=== PATIENT | male | born 1955 | race Caucasian/White ===

== ENCOUNTER 2019-09-10 14:11 | Inpatient (IN) | payer OTHER, SELFPAY ==
[~2019-09-10] VITALS: Ht 157.5 cm; Wt 51.3 kg
[2019-09-10 14:15] VITALS: BP 149/92
--- NOTE | 2019-09-10 14:47 | NUR ---
PT WHEELCHAIRED TO ER BED 06
--- NOTE | 2019-09-10 14:49 | NUR ---
64 Y/O MALE PRESENTS WITH TEAR IN G TUBE THAT CAREGIVER NOTICED TODAY. LEAKING NOTED AT TEAR SITE, WHICH IS AT THE BASE OF G TUBE. CAREGIVER UNABLE TO RECALL WHEN G TUBE WAS REPLACED LAST. ABD SOFT/NON DISTENDED. BOWEL SOUNDS NORMOACTIVE IN ALL QUADRANTS. SKIN COOL/DRY. PT IS NON VERBAL/NON AMBULATORY. RESP EVEN AND UNLABORED. LUNG SOUNDS CLEAR IN BILAT GALVAN ALLERGIES: INSULIN, ZOVIREX
[2019-09-10 15:52] LABS: BASOPHILS % (AUTO) 0.6 % (0.0-2.0); EOSINOPHILS # (AUTO) 0.1 K/uL (0-0.4); EOSINOPHILS % (AUTO) 0.8 % (0.0-4.0); HEMATOCRIT 45.2 % (36-52); HEMOGLOBIN 15.2 g/dL (12.0-18.0); LYMPHOCYTES % (AUTO) 26.6 % (20.5-51.1); MEAN CORPUSCULAR HEMOGLOBIN 33 pg (27-31); MEAN CORPUSCULAR HGB CONC 34 g/dL (33-37); MEAN CORPUSCULAR VOLUME 97.8 fL (80-94); MONOCYTES # (AUTO) 0.6 K/uL (0.8-1.0); MONOCYTES % (AUTO) 8.2 % (1.7-9.3); NEUTROPHILS # (AUTO) 4.9 K/uL (1.8-7.7); NEUTROPHILS % (AUTO) 63.8 % (42.2-75.2); PLATELET COUNT (AUTO) 219 K/uL (140-450); RED BLOOD CELL COUNT(AUTO) 4.62 MIL/uL (4.20-6.10); RED CELL DISTRIBUTION WIDTH 13.1 % (11.6-13.7); WHITE BLOOD COUNT (AUTO) 7.6 K/uL (4.8-10.8)
[2019-09-10 17:13] LABS: ALBUMIN 3.7 g/dL (3.4-5.0); CREATININE 0.7 mg/dL (0.6-1.3); TOTAL BILIRUBIN 0.9 mg/dL (0.0-1.0)
[2019-09-10 17:29] LABS: POTASSIUM 3.6 mmol/L (3.5-5.1)
[2019-09-10] MEDS ORDERED: NACL 0.9% 1,000 ML IV SCH (17:44)
[2019-09-10] MEDS ORDERED: HYDROcodone/APAP 5/325 MG 1 TAB TAB PO PRN (17:45)
[2019-09-10] MEDS ORDERED: DOCUSATE SODIUM 100 MG GELCAP PO PRN (17:45)
[2019-09-10] MEDS ORDERED: ONDANSETRON 4 MG/2 ML VIAL IM/IVP PRN (17:45)
[2019-09-10] MEDS ORDERED: MORPHINE SULFATE 2 MG/ML SYR IVP PRN (17:45)
[2019-09-10] MEDS ORDERED: ACETAMINOPHEN 325 MG TAB PO PRN (17:45)
--- NOTE | 2019-09-10 17:55 | NUR ---
Note sofiekelsy in EDM - 09/10/19 at 1838 by MEDTOMAS Patient discharged with v/s stable. Written and verbal after care instructions given and explained. Patient alert, oriented and verbalized understanding of instructions. Ambulatory with steady gait. All questions addressed prior to discharge. ID band removed. Patient advised to follow up with PMD. Rx of PRILOSEC ,CIPRO given. Patient educated on indication of medication including possible reaction and side effects. Opportunity to ask questions provided and answered.
[2019-09-10] MEDS ORDERED: DEXT 5% /NACL 0.9% 1,000 ML IV ONE (18:05)
[2019-09-10 18:06] LABS: ANION GAP 16.6 (8-16)
[2019-09-10 18:18] LABS: MAGNESIUM 1.9 mg/dL (1.8-2.4); PHOSPHORUS 3.6 mg/dL (2.5-4.9); THYROID STIMULATING HORMONE 3.06 uIU/mL (0.34-3.74)
[2019-09-10 18:32] VITALS: BP 112/85
--- NOTE | 2019-09-10 18:32 | NUR ---
RECEIVED REPORT FROM ER NURSE FOR CONTINUITY OF CARE, PT IS STABLE, PT AOX1, PT APHASIC, PT HAS HX OF CEREBRAL PALSY, PT DX WITH J-TUBE MALFUNCTION WITH VISIBLE TEAR, SKIN INTACT, PT HAS RIGHT FA 22G SALINE LOCK, INTRODUCE SELF, UPDATED WHITEBOARD, BED ALARM ON, SAFETY MEASURES IN PLACE, CALL LIGHT WITHIN REACH, ALL NEEDS MET AT THIS TIME, WILL CONTINUE TO MONITOR.
--- NOTE | 2019-09-10 18:41 | NUR ---
Patient will be admitted to care of [facility]. Admited to TELE. Will go to room 110A. Belongings list completed. Report to DAKOTA WOLFE.
[2019-09-10 18:47] LABS: PROTHROMBIN TIME 10.4 secs (10.8-13.4)
--- NOTE | 2019-09-10 19:02 | NUR ---
GAVE REPORT TO NIGHT NURSE FOR CONTINUITY OF CARE, PT IS STABLE
[2019-09-10] MEDS ORDERED: LACT10SO1 GT (19:03)
[2019-09-10] MEDS ORDERED: ROB1 GT (19:03)
[2019-09-10] MEDS ORDERED: CALC500T37 GT (19:03)
[2019-09-10] MEDS ORDERED: ALEN70TA9 GT (19:03)
[2019-09-10] MEDS ORDERED: MULT-405 GT (19:03)
[2019-09-10] MEDS ORDERED: FAMO-90 GT (19:03)
[2019-09-10] MEDS ORDERED: BISA-188 GT (19:03)
[2019-09-10] MEDS ORDERED: BALS60OI3 TP (19:03)
[2019-09-10] MEDS ORDERED: [UNRECOGNIZED DRUG - CODE] IM (19:03)
[2019-09-10] MEDS ORDERED: MIRABULK PO (19:03)
[2019-09-10] MEDS ORDERED: ACET-2619 GT (19:03)
[2019-09-10] MEDS ORDERED: VITAMIN GT (19:03)
--- NOTE | 2019-09-10 19:05 | NUR ---
BEDSIDE ENDORSEMENT RECEIVED FROM AM SHIFT RN. PATIENT IS LYING IN BED. APHASIC. RESPIRATION EVEN AND UNLABORED. NO SOB. NO PAIN NOTED. WITH IV SITE AT RFA 22 GAUGE. INTACT. NOTED J-TUBE ON THE ABDOMINAL AREA, INTACT, CLEAN AND DRY. NO BLEEDING NOTED. THE J-TUBE APPEARS OLD ON THE OUTSIDE WITH SMALL HOLE NOTED AND WAS ALSO SEEN BY ALESSIA TEJEDA RN. INITIAL ASSESSMENT DONE. FALL PREVENTION PROTOCOL IN PLACE. PLAN OF CARE WAS DISCUSSED. CALL LIGHT WITHIN REACH. WILL CONTINUE TO MONITOR.
--- NOTE | 2019-09-10 19:45 | NUR ---
SPOKE TO MEI RUBIO. PATIENT'S BROTHER VIA PHONE. WITH CP # [phone]. OBTAINED PATIENT'S HISTORY.
[2019-09-10] MEDS ORDERED: PIPERACILLIN/TAZOBACTAM 3.375 GM VIAL IV ONE (21:32)
[2019-09-10] MEDS: PANTOPRAZOLE 40 MG INJ VIAL IVP SCH (21:44)
[2019-09-10] MEDS: PIPERACILLIN/TAZOBACTAM 3.375 GM in DEXTROSE 5% 50 ML IV SCH (21:45)
--- NOTE | 2019-09-10 21:45 | NUR ---
ADMINISTERED DUE MEDS ORDERED. TOLERATED WELL. NO A/R NOTED. WILL CONTINUE TO MONITOR.
[2019-09-11] VITALS: BP 117/64
--- NOTE | 2019-09-11 | NUR ---
V/S TAKEN AND RECORDED. CALL LIGHT WITHIN REACH. WILL CONTINUE TO MONITOR.
--- NOTE | 2019-09-11 03:10 | NUR ---
PATIENT IS RESTING. RESPIRATION EVEN AND UNLABORED. NO SOB. NO PAIN NOTED. CALL LIGHT WITHIN REACH. WILL CONTINUE TO MONITOR.
[2019-09-11 04:00] VITALS: BP 95/59
[2019-09-11] MEDS ORDERED: PIPERACILLIN/TAZOBACTAM 3.375 GM VIAL IV ONE (05:32)
[2019-09-11] MEDS: PIPERACILLIN/TAZOBACTAM 3.375 GM in DEXTROSE 5% 50 ML IV SCH ×3 (05:45→20:43)
[2019-09-11] MEDS ORDERED: DEXT 5% /NACL 0.9% 1,000 ML IV ONE (05:45)
--- NOTE | 2019-09-11 05:49 | NUR ---
DUE MED GIVEN ORDERED. NO A/R NOTED. WILL CONTINUE TO MONITOR.
--- NOTE | 2019-09-11 07:15 | NUR ---
PATIENT IS IN STABLE CONDITION. NO SOB. ENDORSED TO AM SHIFT RN FOR CONTINUITY OF CARE.
--- NOTE | 2019-09-11 07:25 | NUR ---
RECEIVED PT FROM WATER VALVE MECHANIC NURSE. PT IS CURRENTLY ASLEEP AND LAYING IN BED. RESPIRATIONS ARE EVEN AND UNLABORED ON ROOM AIR WITH NO SIGNS OF DISTRESS. SKIN IS INTACT WITH IV PATENT ASYMPTOMATIC AND INFUSING PER ORDER. PT DOES NOT HAVE ANY COMPLAINTS AT THIS TIME. SAFETY MEASURES IN PLACE, CALL LIGHT WITHIN REACH, AND WILL CONTINUE TO MONITOR.
[2019-09-11 07:36] LABS: BASOPHILS # (AUTO) 0.1 K/uL (0.00-0.22); BASOPHILS % (AUTO) 1.4 % (0.0-2.0); EOSINOPHILS # (AUTO) 0.2 K/uL (0-0.4); EOSINOPHILS % (AUTO) 3.6 % (0.0-4.0); HEMATOCRIT 42.9 % (36-52); HEMOGLOBIN 14.4 g/dL (12.0-18.0); LYMPHOCYTES # (AUTO) 2.7 K/uL (2.0-11.5); LYMPHOCYTES % (AUTO) 47.3 % (20.5-51.1); MEAN CORPUSCULAR HEMOGLOBIN 33 pg (27-31); MEAN CORPUSCULAR HGB CONC 34 g/dL (33-37); MEAN CORPUSCULAR VOLUME 98.4 fL (80-94); MONOCYTES # (AUTO) 0.4 K/uL (0.8-1.0); MONOCYTES % (AUTO) 6.9 % (1.7-9.3); NEUTROPHILS # (AUTO) 2.3 K/uL (1.8-7.7); NEUTROPHILS % (AUTO) 40.8 % (42.2-75.2); PLATELET COUNT (AUTO) 233 K/uL (140-450); RED BLOOD CELL COUNT(AUTO) 4.36 MIL/uL (4.20-6.10); RED CELL DISTRIBUTION WIDTH 13.1 % (11.6-13.7); WHITE BLOOD COUNT (AUTO) 5.6 K/uL (4.8-10.8)
[2019-09-11 07:46] LABS: ANION GAP 12.2 (8-16); CARBON DIOXIDE 30.7 mmol/L (21-32); CREATININE 0.6 mg/dL (0.6-1.3); POTASSIUM 3.9 mmol/L (3.5-5.1)
[2019-09-11 07:50] LABS: MAGNESIUM 1.9 mg/dL (1.8-2.4); PHOSPHORUS 3.6 mg/dL (2.5-4.9)
[2019-09-11 08:00] VITALS: BP 91/46
--- NOTE | 2019-09-11 09:50 | NUR ---
ADMINISTERED MEDICATIONS PER ORDER AND TOLERATED WELL. PT IS CURRENTLY AWAKE AND LAYING IN BED WITH NO SIGNS OF DISTRESS NOTED. SAFETY MEASURES IN PLACE AND WILL CONTINUE TO MONITOR.
[2019-09-11] MEDS: PANTOPRAZOLE 40 MG INJ VIAL IVP SCH ×2 (09:55→20:43)
[2019-09-11] MEDS: DEXT 5% / NACL 0.45% 1,000 ML IV SCH (10:14)
--- NOTE | 2019-09-11 11:55 | NUR ---
URINE ANALYSIS HAS BEEN REQUESTED THEREFORE PATIENT WAS STRAIGHT CATHETERIZED. PT IS IN NO SIGNS OF DISTRESS AT THIS TIME. SAFETY MEASURES IN PLACE AND WILL CONTINUE TO MONITOR
[2019-09-11 12:00] VITALS: BP 106/83
[2019-09-11] MEDS ORDERED: MORPHINE SULFATE 2 MG/ML SYR IVP SCH (13:13)
--- NOTE | 2019-09-11 13:16 | NUR ---
PT IS CURRENTLY AWAKE, ALERT WITH NO SIGNS OF DISTRESS AT THIS TIME. DR. ARIAS CAME TO EXAMINE PT AND WILL REMOVE G-TUBE THAT IS IN PLACE. GAVE PT 2MG MORPHINE PER DR. CLEVELAND TO PREPARE PT FOR J-TUBE REMOVAL. VITAL SIGNS ARE WITHIN NORMAL RANGE. SAFETY MEASURES IN PLACE AND WILL CONTINUE TO MONITOR.
--- NOTE | 2019-09-11 13:30 | NUR ---
DR. ARIAS COULD NOT REMOVED J-TUBE AT BEDSIDE THEREFORE EGD WITH TUBE PLACEMENT CONSENT NEEDS TO BE SIGNED BY PATIENT FAMILY. NOT OTHER CONCERNS AT THIS TIME SAFETY MEASURES IN PLACE AND WILL CONTINUE OT MONITOR.
--- NOTE | 2019-09-11 15:23 | NUR ---
PT IS CURRENTLY LAYING IN BED WITH NO SIGNS OF DISTRESS NOTED. MEDICATIONS ADMINISTERED AND TOLERATED WELL. SAFETY MEASURES IN PLACE AND WILL CONTINUE TO MONITOR.
[2019-09-11 16:00] VITALS: BP 91/46
--- NOTE | 2019-09-11 17:12 | NUR ---
PT IS CURRENTLY LAYING IN BED WITH NO SIGNS OF DISTRESS VIA FLACC-0. VITAL SIGNS ARE WITHIN NORMAL RANGE. SAFETY MEASURES IN PLACE CALL LIGHT WITHIN REACH AND WILL CONTINUE TO MONITOR.
--- NOTE | 2019-09-11 18:36 | NUR ---
PT IS CURRENTLY LAYING IN BED WITH NO SIGNS OF DISTRESS NOTED VIA FLACC-0, PT IS IN STABLE CONDITION. SAFETY MEASURES IN PLACE AND WILL ENDORSE TO ROLL FILLER NURSE FOR CONTINUITY OF CARE.
--- NOTE | 2019-09-11 19:05 | NUR ---
RECEIVED BEDSIDE REPORT FROM AM SHIFT NURSE. PATIENT IS LYING IN BED, AWAKE. NO SOB OR DISTRESS NOTED, ON ROOM AIR. IV ACCESS ON RIGHT FOREARM 22 GAUGE, PATENT, INTACT AND INFUSING WELL. PATIENT IS BED BOUND. INITIAL ASSESSMENT DONE. NOTED WITH MALFUNCTIONED G-TUBE. SKIN IS INTACT. BED IN LOW. BED LOCKED. SAFETY MEASURES IN PLACE. WILL CONTINUE TO MONITOR PATIENT.
[2019-09-11 20:27] LABS: APPEARANCE,URINE CLEAR (CLEAR); BILIRUBIN,URINE NEGATIVE (NEGATIVE); BLOOD, URINE NEGATIVE (NEGATIVE); COLOR,URINE YELLOW (YELLOW); LEUKOCYTE ESTERASE ,URINE NEGATIVE (NEGATIVE); NITRITE, URINE NEGATIVE (NEGATIVE); UGLUCOSE NEGATIVE (NEGATIVE)
--- NOTE | 2019-09-11 21:29 | NUR ---
ENDORSED TO CHARGE NURSE LENIN FOR CONTINUATION OF CARE. PATIENT IN STABLE CONDITION. NO SOB OR DISTRESS NOTED.
--- NOTE | 2019-09-11 21:30 | NUR ---
RECEIVED PT SLEEPING, OPEN EYES TO TOUCH, APHASIC, IVF INFUSING WELL, WITH MALFUNCTIONING G-TUBE, CLAMPED AT THIS TIME WITH ELICEO FORCEPS, NO DRAINAGE NOTED, FOR EGD WITH PEG PLACEMENT TOMORROW, MAINTAINED ON NPO, WILL REPOSITIONED Q2H AND OFFLOAD PRESSURE AREAS, SAFETY MEASURES IN PLACE, CALL LIGHT WITHIN REACH.
[2019-09-12] VITALS: BP 111/57
--- NOTE | 2019-09-12 | NUR ---
PT SLEEPING, OPEN EYES TO TOUCH, VITAL SIGNS STABLE, FLACC-0, IVF INFUSING WELL, CONTINUE ON NPO STATUS, REPOSITIONED Q2H AND OFFLOAD PRESSURE AREAS, MONITORED CLOSELY.
--- NOTE | 2019-09-12 02:00 | NUR ---
PT INCONTINENT OF URINE, PERINEAL CARE DONE, CONTINUE TO REPOSITION Q2H AND OFFLOAD PRESSURE AREAS.
[2019-09-12] MEDS: PIPERACILLIN/TAZOBACTAM 3.375 GM in DEXTROSE 5% 50 ML IV SCH ×3 (04:28→20:58)
--- NOTE | 2019-09-12 04:30 | NUR ---
SEEN PT SLEEPING, OPEN EYES TO TOUCH, APHASIC, DUE ZOSYN IVPB ADMINISTERED, MAINTAINED ON NPO, MONITORED CLOSELY.
[2019-09-12] MEDS: DEXT 5% / NACL 0.45% 1,000 ML IV SCH (06:33)
[2019-09-12 07:00] LABS: BASOPHILS % (AUTO) 0.7 % (0.0-2.0); EOSINOPHILS # (AUTO) 0.2 K/uL (0-0.4); HEMATOCRIT 42.3 % (36-52); HEMOGLOBIN 14.3 g/dL (12.0-18.0); LYMPHOCYTES % (AUTO) 38.5 % (20.5-51.1); MEAN CORPUSCULAR HEMOGLOBIN 33 pg (27-31); MEAN CORPUSCULAR HGB CONC 34 g/dL (33-37); MEAN CORPUSCULAR VOLUME 98.6 fL (80-94); MONOCYTES # (AUTO) 0.4 K/uL (0.8-1.0); NEUTROPHILS # (AUTO) 2.5 K/uL (1.8-7.7); NEUTROPHILS % (AUTO) 49.8 % (42.2-75.2); PLATELET COUNT (AUTO) 200 K/uL (140-450); RED BLOOD CELL COUNT(AUTO) 4.29 MIL/uL (4.20-6.10); RED CELL DISTRIBUTION WIDTH 13.3 % (11.6-13.7); WHITE BLOOD COUNT (AUTO) 5.1 K/uL (4.8-10.8)
[2019-09-12 07:19] LABS: MAGNESIUM 1.9 mg/dL (1.8-2.4); PHOSPHORUS 2.8 mg/dL (2.5-4.9)
[2019-09-12 07:22] LABS: CARBON DIOXIDE 29.2 mmol/L (21-32); CREATININE 0.6 mg/dL (0.6-1.3)
[2019-09-12 07:36] LABS: POTASSIUM 3.8 mmol/L (3.5-5.1)
--- NOTE | 2019-09-12 07:36 | NUR ---
PT AWAKE, NO SIGNS OF DISTRESS, REPORT GIVEN TO YANETH DAMON FOR CONTINUITY OF CARE.
--- NOTE | 2019-09-12 07:37 | NUR ---
RECEIVED ENDORSEMENT FROM PM NURSE BEDSIDE FOR CONTINUITY OF CARE. PATIENT IS AWAKE. APHASIC. RESPIRATORY EVEN AND UNLABORED, ROOM AIR. VISIBLE CHEST RISE AND FALL NOTED. ABDOMEN SOFT AND NONTENDER. JTUBE SITE NOTED WITH A CLAMP. SKIN WARM, DRY, AND INTACT. IV ON RIGHT FA G22, RUNNING D5NS AT 50 ML/HR. NO IV INFILTRATION NOTED. IVF RUNNING WELL. PATIENT IS BEDBOUND. ON FALL PRECAUTION. INCONTINENT. HAS SHAYNE EGD WITH PEG WITH DR. ARIAS. CONSENT SIGNED VIA TELEPHONE CONSENT PER PM NURSE. BED IN LOW POSITION. CALL LIGHT IS WITHIN REACH. WILL CONTINUE TO MONITOR.
--- NOTE | 2019-09-12 07:40 | NUR ---
NASOPHARYNGEAL COVID-19 SWAB COLLECTED. PATIENT TOLERATED WELL.
[2019-09-12 08:00] VITALS: BP 107/72
[2019-09-12] MEDS: PANTOPRAZOLE 40 MG INJ VIAL IVP SCH ×2 (08:31→20:59)
--- NOTE | 2019-09-12 08:40 | NUR ---
GIVEN MORNING MEDICATIONS SCHEDULED AND PER MD ORDER. HEPARIN SUBQ IN THE LEFT UPPER ARM, SUBQ. PLATELET IS 200. PATIENT TOLERATED WELL. WILL CONTINUE TO MONITOR
--- NOTE | 2019-09-12 09:40 | NUR ---
PATIENT HAS BEEN SCREENED AND CATEGORIZED HIGH NUTRITION RISK. PATIENT WILL BE SEEN WITHIN 1-2 DAYS OF ADMISSION. 09/12/[address]
--- NOTE | 2019-09-12 10:29 | NUR ---
PATIENT IS AWAKE, LAYING IN BED. NO SIGNS OF DISTRESS NOTED. BED IN LOW POSITION. CALL LIGHT IS WITHIN REACH. WILL CONTINUE TO MONITOR.
--- NOTE | 2019-09-12 11:04 | NUR ---
OIL PIPELINE DISPATCHER NOTE: ЕКАТЕРИНА CONTACTED [facility] [phone]. ЕКАТЕРИНА WAS INFORMED THAT PATIENT IS NOT A RESIDENT AT THIS FACILITY AND THAT THERE ARE MULTIPLE RESCARE FACILITIES IN [place]. ЕКАТЕРИНА WAS PROVIDED PHONE NUMBER TO RESCARE OFFICE [phone]. ЕКАТЕРИНА LEFT TO FIND [phone] [place] [address] PHONE NUMBER. ЕКАТЕРИНА WILL FOLLOW UP.
[2019-09-12] MEDS ORDERED: diphenhydrAMINE 50 MG/ML VIAL ONE (11:46)
[2019-09-12] MEDS ORDERED: fentaNYL 0.05 MG/ML VIAL ONE (11:47)
[2019-09-12] MEDS ORDERED: MIDAZOLAM 2 MG/2 ML VIAL ONE (11:47)
--- NOTE | 2019-09-12 11:52 | NUR ---
DROPLET PRECAUTION IN PLACE FOR R/O COVID FOR SNF PLACEMENT.
--- NOTE | 2019-09-12 11:56 | NUR ---
ASSISTED MIKE DAVIS, FOR HYGIENE CARE AND REPOSITIONING. PATIENT TOLERATED ACTIVITY WELL. BED IN LOW POSITION. CALL LIGHT IS WITHIN REACH. WILL CONTINUE TO MONITOR.
[2019-09-12 12:07] LABS: T4 (THYROXINE) 11.8 ug/dL (4.5-12.0)
--- NOTE | 2019-09-12 12:46 | NUR ---
PATIENT OFF UNIT TO OR FOR EGD WITH PEG.
--- NOTE | 2019-09-12 13:22 | NUR ---
PATIENT RETURNED FROM OR. WILL DO POST-OP VITAL SIGNS. HUNG ZOSYN VIA IVPB. EXPLAINED MEDICATION. PATIENT IS IN STABLE CONDITION. BED IN LOW POSITION. CALL LIGHT IS WITHIN REACH. WILL CONTINUE TO MONITOR.
--- NOTE | 2019-09-12 13:27 | NUR ---
GIVEN UPDATE TO MEI RUBIO, BROTHER, . HE WAS PLEASED THAT THE SURGERY WENT WELL.
--- NOTE | 2019-09-12 13:39 | NUR ---
09/12/19 RD INITIAL ASSESSMENT COMPLETED PLEASE REFER TO NUTRITION ASSESSMENT UNDER CARE ACTIVITY FOR ESTIMATED NUTRITIONAL NEEDS. 1. RECOMMEND JEVITY 1.2 @ 45 ML/HR X 24 HR -THIS PROVIDES 1080 ML OF VOLUME, 1296 CALORIES AND 60 GM OF PROTEIN WHICH MEETS ESTIMATED NUTRIENT NEEDS 2. RECOMMEND FREE H2O FLUSH OF [address] TO FOLLOW-UP 2-3 DAYS, HIGH RISK [address]
--- NOTE | 2019-09-12 14:40 | NUR ---
DC PLANNIN YRS OLD MALE PATIENT WAS ADMITTED FROM [facility] WITH A DX OF J-TUBE MALFUNCTION. PT HAS A HX OF CEREBRAL PALSY. OSTEOPOROSIS, CHRONIC CONSTIPATION DYSPHAGIA S/P J-TUBE PLACEMENT . CXR SHOWED RIGHT UPPER LOBE INFILTRATE COVID TEST ORDERED. ABD X-RAY SHOWED NO OBSTRUCTION. STARTED IV ABX ZOSYN ,IV PROTONIX AND CONSULTED WITH GI DR ARIAS . SEEN BY DR ARIAS REMOVED THE OLD G-TUBE AND INSERTED A NEW G-TUBE AND RESUME G-TUBE FEEDING . DC PLAN TO GO BACK TO [facility] WHEN STABLE CM TO FOLLOW Addendum: 09/13/19 at 1100 by Florencia Monk CM SPOKE TO SARITA AT [facility] [phone]. HE SAID THE PATIENT CAN GO BACK TODAY [place] 2:00-3:00 PM BECAUSE THEY HAVE TO GET THE ROOM READY FOR PATIENT. I NOTIFIED YANETH NARANJO TO LET HER KNOW. I WILL SET UP TRANSPORTATION WITH [facility] PROVIDED BY DIANA LUNA [phone]. AUTH #[id number] Addendum: 09/13/19 at 1110 by Florencia Monk CM SPOKE TO AMELIE [phone] HE STATED THAT THEY WILL BE ABLE TO PROVIDED TRANSPORTATION FOR PATIENT. Addendum: 09/13/19 at 1227 by Lidia Gao CM DC PLANNING: RECEIVED A CALL FROM [facility] SPOKE WITH JESSICA [phone] STATED HE NEEDS TO GET A CLEARANCE [facility] TO [facility] PATIENT AND CALL BACK CM TO FOLLOW. Addendum: 09/14/19 at 1213 by Geraldine Montilla RECEIVED A CALL FROM AMELIE WARREN OF [facility] STATING THAT HE WENT TO [facility] [address] [facility] TO CALL CENTER TEAM LEADER THE PATIENT'S MEDS HOWEVER PHARMACY TOLD HIM THAT NO PRESCRIPTIONS HAVE BEEN SENT OVER TO THEM. DR. GUZMÁN MADE AWARE. HE STATED HE WILL SEND OVER PRESCRIPTION. INFORMED AMELIE WARREN, HE STATED HE WILL PICK IT UP LATER. PROVIDED HIM OF MY CONTACT INFO IF HE HAS CONCERNS.
[2019-09-12] MEDS ORDERED: fentaNYL 0.05 MG/ML VIAL IVP ONE (14:50)
[2019-09-12] MEDS ORDERED: MIDAZOLAM 2 MG/2 ML VIAL IVP ONE (14:50)
--- NOTE | 2019-09-12 15:25 | NUR ---
FELL CUTTER NOTE: Basic Screen: Yes High Risk DC Screen [place]: MEI RUBIO [place] Relationship: BROTHER Pre-Admission Living Arrangements: Other Other: [facility] Prior ADL Total/Dependent Current Home Health Name/Tel: N/A Current DME/02 Name/Tel: [facility] Current Hospice Name/Tel: N/A Current Dialysis Name/Tel: N/A Healthcare Decision Maker: Patient Advance Directive No Physician Orders for Life Sustaining Treatment Form No Patient/Family Have Educational Needs No Discipline: Case Mgt/Social Svcs Tentative Discharge Plan/Destination: No Needs Identified Will require assistance post discharge: No Referred to [place] Lay Out Worker: No Tentative Discharge Plan Summary: PATIENT IS A 64-YEAR-OLD MALE ADMITTED FOR J-TUBE MALFUNCTION. PATIENT HAS PMHX OF CEREBRAL PALSY, OSTEOPOROSIS, CHRONIC CONSTIPATION, AND DYSPHAGIA. PATIENT WAS ADMITTED FROM [facility]. ЕКАТЕРИНА CONTACTED PATIENT'S BROTHER MEI RUBIO [phone] TO VERIFY DEMOGRAPHICS. PER MEI, PATIENT UTILIZES A WHEELCHAIR AND REQUIRES TOTAL ASSISTANCE WITH ADLS. MEI STATED THAT PATIENT IS NOT ALERT/ORIENTED AT BASELINE. MEI PROVIDED AMELIE'S PHONE NUMBER FROM [facility] [phone]. ЕКАТЕРИНА CONTACTED AMELIE AND ASKED IF PATIENT WOULD NEED COVID TESTING AFTER DISCHARGE. AMELIE STATED THAT HE WILL NOT. AMELIE SAID THAT PATIENT WAS A RESIDENT OF THE HOME SINCE FEBRUARY 2019. TENTATIVE DISCHARGE PLAN IS FOR PATIENT TO RETURN TO [facility]. NO FURTHER NEEDS IDENTIFIED. Signature: VALERIE THAYER Date: Sep 12, 2019 Time: 14:57
--- NOTE | 2019-09-12 15:47 | NUR ---
PATIENT IS CURRENTLY SLEEPING AT THIS TIME. NO SIGNS OF DISTRESS NOTED. O2SAT 94% ROOM AIR, HR 60. BED IN LOW POSITION. CALL LIGHT IS WITHIN REACH. WILL CONTINUE TO MONITOR.
[2019-09-12 16:00] VITALS: BP 115/76
--- NOTE | 2019-09-12 16:58 | NUR ---
STARTED G-TUBE FEEDING JEVITY 1.2 AT 10 ML/HR FOR THE FIRST HR, H2O FLUSH 100 ML Q6H. WILL RECHECK GTUBE FEEDING TOLERANCE IN AN HOUR. GOAL RATE IS 45 ML/HR.
--- NOTE | 2019-09-12 17:23 | NUR ---
DIVERSIONAL THERAPIST IS CLEANING THE PATIENT. REPOSITIONED WELL.
--- NOTE | 2019-09-12 17:40 | NUR ---
NEGATIVE FOR COVID-19 PER LAB. CHARGE NURSE AWARE
--- NOTE | 2019-09-12 18:05 | NUR ---
GASTRIC RESIDUAL 5 ML. INCREASED G-TUBE FEEDING RATE TO 20 ML/HR. GOAL RATE IS 45 ML/HR.
--- NOTE | 2019-09-12 19:18 | NUR ---
ENDORSED PATIENT TO THE INTERVENTION MANAGER NURSE FOR CONTINUITY OF CARE. PATIENT IS IN STABLE CONDITION.
--- NOTE | 2019-09-12 20:00 | NUR ---
RECEIVED PATIENT REPORT AT BEDSIDE. PT ASLEEP BUT AROUSABLE. NO S/S OF DISTRESS NOTED. TUBE FEEDING PATENT. PT TOLERATING FEEDING WELL. NO RESIDUALS NOTED. BED LOWERED WITH CALL LIGHT WITHIN REACH. WILL CONTINUE TO MONITOR
[2019-09-13] VITALS: BP 115/64
--- NOTE | 2019-09-13 02:28 | NUR ---
PT ASLEEP IN BED. NO S/S OF DISTRESS NOTED
--- NOTE | 2019-09-13 04:00 | NUR ---
PT VOIDED AND HAD A BM. PATIENT CLEANED AND REPOSITIONED FOR COMFORT
[2019-09-13 04:06] VITALS: BP 121/51
[2019-09-13] MEDS: PIPERACILLIN/TAZOBACTAM 3.375 GM in DEXTROSE 5% 50 ML IV SCH ×2 (05:55→14:55)
[2019-09-13 06:25] LABS: BASOPHILS # (AUTO) 0.1 K/uL (0.00-0.22); BASOPHILS % (AUTO) 0.9 % (0.0-2.0); EOSINOPHILS # (AUTO) 0.2 K/uL (0-0.4); EOSINOPHILS % (AUTO) 4.1 % (0.0-4.0); HEMATOCRIT 42.1 % (36-52); HEMOGLOBIN 14.1 g/dL (12.0-18.0); LYMPHOCYTES # (AUTO) 2.1 K/uL (2.0-11.5); LYMPHOCYTES % (AUTO) 37.2 % (20.5-51.1); MEAN CORPUSCULAR HEMOGLOBIN 33 pg (27-31); MEAN CORPUSCULAR HGB CONC 33 g/dL (33-37); MEAN CORPUSCULAR VOLUME 98.7 fL (80-94); MONOCYTES # (AUTO) 0.5 K/uL (0.8-1.0); MONOCYTES % (AUTO) 8.8 % (1.7-9.3); NEUTROPHILS # (AUTO) 2.8 K/uL (1.8-7.7); PLATELET COUNT (AUTO) 204 K/uL (140-450); RED BLOOD CELL COUNT(AUTO) 4.27 MIL/uL (4.20-6.10); RED CELL DISTRIBUTION WIDTH 13.5 % (11.6-13.7); WHITE BLOOD COUNT (AUTO) 5.7 K/uL (4.8-10.8)
[2019-09-13 06:56] LABS: CREATININE 0.6 mg/dL (0.6-1.3); POTASSIUM 4.6 mmol/L (3.5-5.1)
[2019-09-13 07:12] LABS: ANION GAP 13.2 (8-16); CARBON DIOXIDE 28.4 mmol/L (21-32)
--- NOTE | 2019-09-13 07:26 | NUR ---
PT REPORT GIVEN AT BEDSIDE. PT ENDORSED IN STABLE CONDITION
--- NOTE | 2019-09-13 07:28 | NUR ---
RECEIVED BEDSIDE REPORT FROM FOUNTAIN PEN TURNER NURSE TYESHA FOR CONTINUITY OF CARE. PT IS AWAKE AND RESTING ON BED AT THIS TIME. PT IS AAOX0, APHASIC. RESPIRATION EVEN AND UNLABORED ON RA. FLACC 0. NO SIGNS OF DISTRESS NOTED. IV ON RFA 22G, CLEAN AND INTACT, TKO. SKIN CLEAN AND DRY. J-TUBE IN PLACE, AND RUNNING JEVITY 1.2 AT 45 ML/HR. PT IS INCONTINENT AND BEDBOUND. SAFETY MEASURES IN PLACE. FALL RISK PROTOCOL IN PLACE. BED LOCKED. BED ALARM ACTIVATED. BED IN LOW POSITION AND CALL LIGHT WITHIN REACH.
[2019-09-13 08:00] VITALS: BP 122/48
[2019-09-13] MEDS ORDERED: POLYETHYLENE GLYCOL 17 GM/PKT PO SCH (09:10)
[2019-09-13] MEDS ORDERED: LACTULOSE 20 GM/30 ML UDC GT SCH ×3 (09:10→21:00)
[2019-09-13] MEDS ORDERED: MULTIVITAMIN 1 TAB GT SCH (09:10)
[2019-09-13] MEDS ORDERED: BISACODYL 5 MG TABEC GT SCH (09:10)
[2019-09-13] MEDS ORDERED: LEVO500T98 PO (09:25)
[2019-09-13] MEDS ORDERED: METR500T1 PO (09:25)
[2019-09-13] MEDS: PANTOPRAZOLE 40 MG INJ VIAL IVP SCH (09:37)
--- NOTE | 2019-09-13 09:45 | NUR ---
CHECKED G-TUBE RESIDUAL AND RECEIVED 0. ADMINISTERED SCHEDULED MEDS VIA G-TUBE, MEDS ED PROVIDED AND REINFORCEMENT NEEDED. PT AWAKE AND RESTING ON BED. FLACC 0. NO SIGNS OF DISTRESS NOTED. SAFETY MEASURES IN PLACE. BED ALARM ACTIVATED.
--- NOTE | 2019-09-13 11:37 | NUR ---
PT IS AWAKE AND RESTING ON BED AT THIS TIME. FALCC 0. NO SIGNS OF ACUTE DISTRESS NOTED. SAFETY MEASURES IN PLACE. BED ALARM ACTIVATED.
[2019-09-13] MEDS ORDERED: GLYCOPYRROLATE 1 MG TAB GT SCH (13:00)
[2019-09-13] MEDS ORDERED: CALCIUM CARBONATE 500 MG TAB GT SCH (13:00)
--- NOTE | 2019-09-13 13:50 | NUR ---
FUR STYLIST IS PROVING HYGIENE CARE AT BEDSIDE. NO SIGNS OF DISTRESS NOTED. SAFETY MEASURES IN PLACE. BED ALARM ACTIVATED.
[2019-09-14] MEDS ORDERED: LEVO500T98 PO (12:19)
[2019-09-14] MEDS ORDERED: METR500T1 PO (12:19)
[2019-09-17] MEDS ORDERED: ALENDRONATE SODIUM 70 MG TAB PO SCH (06:00)
== END 2019-09-13 17:34 | disposition home or self-care (01) | DRG 252 ==
LOC: MED 14:11 → MTU 17:44 → EEVIPCON 17:44
PROVIDERS: ADMIT General Practice; ATTEND General Practice
PROC: 0D20XUZ Change Feeding Device in Upper Intestinal Tract, External Approach (ICD-10-PCS; principal; 2019-09-12 12:30)
DX: K94.23 Gastrostomy malfunction (principal); J18.9 Pneumonia, unspecified organism; R53.2 Functional quadriplegia; E87.0 Hyperosmolality and hypernatremia; K94.13 Enterostomy malfunction; Z03.818 Encounter for observation for suspected exposure to other biological agents ruled out; Z88.8 Allergy status to other drugs, medicaments and biological substances; M81.0 Age-related osteoporosis without current pathological fracture; K59.09 Other constipation; R73.9 Hyperglycemia, unspecified; G80.9 Cerebral palsy, unspecified
CPT/HCPCS: 36415; 71045; 74018; 80048; 80053; 81003; 83036; 83735; 83880; 84100; 84436; 84443; 84484; 85025; 85610; 85730; 87081; 93005; 99285; C1758; C9113; J1200; J1644; J2250; J2270; J2543; J3010; J7030; J7042; J7060; Q0092; U0003-CS